=== PATIENT | female | born 1985 | race Caucasian/White ===

== ENCOUNTER 2017-11-24 16:00 | Inpatient (IN) | payer OTHER ==
[2017-11-24] MEDS ORDERED: Sodium Chloride 0.9% 10 ML Syringe FLUSH PRN (18:41)
[2017-11-24] MEDS ORDERED: Misoprostol 100 MCG Tab VAG PRN (18:41)
[2017-11-24] MEDS ORDERED: Ondansetron 4 MG/2 ML SDV IVPUSH PRN (18:41)
[2017-11-24] MEDS ORDERED: Zolpidem 5 MG Tab PO PRN (18:41)
[2017-11-24] MEDS ORDERED: Nalbuphine 20 MG/1 ML Amp IVPUSH PRN (18:41)
[2017-11-24] MEDS ORDERED: Oxytocin/Lactated Ringers 10 UNIT/1,000 ML BAG IV SCH ×2 (18:45)
--- NOTE | 2017-11-24 19:00 | PCM.LDHP ---
L&D History of Present Illness - General Date of Service: 11/24/17 Admit Problem/Dx: Patient Status Order with Admit Dx/Problem 11/24/17 18:42 Patient Status [ADT] Routine Admission Diagnosis/Problem Admission Diagnosis/Problem Gestational hypertension Source of Information: Patient History Limitations: Reports: No Limitations - History of Present Illness Introduction:: Patient is a 32 y/o at 39 4/7 wks. Presents today for IOL for gestational HTN. Doing well overall. No headaches, vision changes, RUQ pain. No other concerns. - Related Data Allergies/Adverse Reactions: Allergies Allergy/AdvReac Type Severity Reaction Status Date / Time No Known Allergies Allergy Verified 11/22/17 11:39 Past Medical History [employer] History: Reports: : 1 Para: 0 LMP (Approximate): - Past Surgical History HEENT Surgical History: Reports: Oral Surgery Social & Family History - Family History Family Medical History: Noncontributory - Tobacco Use Smoking Status *Q: Never Smoker - Alcohol Use Alcohol Use History: No - Recreational Drug Use Recreational Drug Use: No H&P Review of Systems - Review of Systems: Review Of Systems: See Below General: Reports: No Symptoms Pulmonary: Reports: No Symptoms Cardiovascular: Reports: No Symptoms Gastrointestinal: Reports: No Symptoms Genitourinary: Reports: No Symptoms Musculoskeletal: Reports: No Symptoms Psychiatric: Reports: No Symptoms Neurological: Reports: No Symptoms L&D Exam - Exam Exam: See Below - OB Specific Contraction Intensity: Irritability Movement: Active Heart Tones: Present Heart Tones per Min: 130 Heart Rate (FHR) Variability: Moderate (6-25 bmp) Presentation: Vertex - Fitzgerald Score Fitzgerald Score Cervix Position: Posterior Fitzgerald Score Consistency: Soft Fitzgerald Score Effacement: 51-70% Fitzgerald Score Dilation: 1-2 cm Fitzgerald Score 's Station: -2 Fitzgerald Score Total: 6 - Exam General: Alert, Oriented, Cooperative Lungs: Clear to Auscultation, Normal Respiratory Effort Cardiovascular: Regular Rate, Regular Rhythm GI/Abdominal Exam: Soft, Non-Tender Genitourinary: Normal external exam Back Exam: Normal Inspection Extremities: Pedal Edema Skin: Warm, Dry, Intact Neurological: Reflexes Equal Bilateral - Problem List (1) 39 weeks gestation of SNOMED Code(s): 94103264 ICD Code: Z3A.39 - 39 WEEKS GESTATION OF Status: Acute Current Visit: Yes Problem List Initiated/Reviewed/Updated: Yes Orders Last 24hrs: Active Orders 24 hr Category Date Time Status Patient Status [ADT] Routine ADT 11/24/17 18:42 Ordered Communication Order [RC] ASDIRECTED Care 11/24/17 18:42 Ordered Communication Order [RC] ASDIRECTED Care 11/24/17 18:42 Ordered Communication Order [RC] ASDIRECTED Care 11/24/17 18:42 Ordered Heart Tones [RC] ASDIRECTED Care 11/24/17 18:44 Ordered Monitoring [RC] INTERMITTENT Care 11/24/17 18:42 Ordered Notify Provider [RC] ASDIRECTED Care 11/24/17 18:42 Ordered Peripheral IV Care [RC] . DIRECTED Care 11/24/17 18:44 Ordered Pump Management, Intrathecal [RC] ASDIRECTED Care 11/24/17 18:41 Ordered Up ad Rowena [RC] ASDIRECTED Care 11/24/17 18:44 Ordered Vaginal Exam [RC] ASDIRECTED Care 11/24/17 18:42 Ordered Vital Signs [RC] ASDIRECTED Care 11/24/17 18:42 Ordered Regular Diet [DIET] Diet 11/24/17 Dinner Ordered ALANINE AMINOTRANSFERASE,ALT [CHEM] Routine Lab 11/24/17 18:41 Ordered ASPARTATE AMNIOTRANSFERASE,AST [CHEM] Routine Lab 11/24/17 18:41 Ordered CBC W/O DIFF,HEMOGRAM [HEME] Stat Lab 11/24/17 18:41 Ordered CREATININE W/GFR [CHEM] Stat Lab 11/24/17 18:41 Ordered TYPE AND SCREEN [BBK] Stat Lab 11/24/17 18:41 Ordered UA W/O MICROSCOPIC [URIN] Routine Lab 11/24/17 18:41 Ordered Lactated Ringers [Ringers, Lactated] 1,000 ml Med 11/24/17 18:45 Ordered IV ASDIRECTED Misoprostol [Cytotec] Med 11/24/17 18:41 Ordered 25 mcg VAG Q4H PRN Nalbuphine [Nubain] Med 11/24/17 18:41 Ordered 10 mg IVPUSH Q2H PRN Ondansetron [Zofran] Med 11/24/17 18:41 Ordered 4 mg IVPUSH Q4H PRN Oxytocin/Lactated Ringers [Pitocin in LR 10 Units/1,000 Med 11/24/17 18:45 Ordered ML] 10 unit in 1,000 ml IV .CONTINUOUS Oxytocin/Lactated Ringers [Pitocin in LR 10 Units/1,000 Med 11/24/17 18:45 Ordered ML] 10 unit in 1,000 ml IV TITRATE Sodium Chloride 0.9% [Saline Flush] Med 11/24/17 18:41 Ordered 10 ml FLUSH ASDIRECTED PRN Zolpidem [Ambien] Med 11/24/17 18:41 Ordered 5 mg PO BEDTIME PRN Electronic Heart Tones Ext w TOCO [WOMSER] Oth 11/24/17 18:42 Ordered Routine Peripheral IV Insertion Adult [OM.PC] Routine Ot 11/24/17 18:42 Ordered Medication Orders Lactated Ringer's (Ringers, Lactated) 1,000 mls @ 40 mls/hr IV ASDIRECTED TEN Oxytocin/Lactated Ringer's (Pitocin In Lr 10 Units/1,000 Ml) 10 unit in 1,000 mls @ 12 mls/hr IV TITRATE TEN; Protocol Oxytocin/Lactated Ringer's (Pitocin In Lr 10 Units/1,000 Ml) 10 unit in 1,000 mls @ 500 mls/hr IV .CONTINUOUS TEN Misoprostol (Cytotec) 25 mcg VAG Q4H PRN PRN Reason: cervical ripening Nalbuphine HCl (Nubain) 10 mg IVPUSH Q2H PRN PRN Reason: Pain (moderate 4-6) Ondansetron HCl (Zofran) 4 mg IVPUSH Q4H PRN PRN Reason: Nausea/Vomiting Sodium Chloride (Saline Flush) 10 ml FLUSH ASDIRECTED PRN PRN Reason: Keep Vein Open Zolpidem Tartrate (Ambien) 5 mg PO BEDTIME PRN PRN Reason: Insomnia Assessment/Plan Comment:: 32 y/o at 39 4/7 wks presents for IOL for gestational HTN * CBC, AST, ALT, Creatinine, UA * GBS negative, no need for antibiotics * Cytotec and snow bulb placed. Pitocin/AROM when needed * Monitor BP's closely * Pain management per patient preference * Anticipate
[2017-11-24] MEDS: Misoprostol 25 MCG (1/4 of 100 MCG) Tab ONE ×2 (19:22→22:35)
[2017-11-24] MEDS ORDERED: Misoprostol 25 MCG (1/4 of 100 MCG) Tab ONE (22:07)
[2017-11-25] MEDS ORDERED: Misoprostol 25 MCG (1/4 of 100 MCG) Tab VAG PRN (01:47)
[2017-11-25] MEDS ORDERED: Nalbuphine 20 MG/ML 1 ML Syringe IVPUSH PRN (04:00)
[2017-11-25] MEDS: Lactated Ringers 1,000 ML IV SCH ×3 (04:53→07:16)
[2017-11-25] MEDS ORDERED: fentaNYL 100 MCG/2 ML SDV EPIDUR PRN (05:14)
[2017-11-25] MEDS ORDERED: diphenhydrAMINE 50 MG/ML SDV IVPUSH PRN (05:14)
[2017-11-25] MEDS ORDERED: ePHEDrine 50 MG/ML SDV IVPUSH PRN (05:14)
[2017-11-25] MEDS: Bupivacaine/fentaNYL/NS 100 ML Bag EPIDUR SCH ×2 (05:55→12:31)
--- NOTE | 2017-11-25 06:09 | PCM.PREANE ---
Preanesthetic Assessment - Procedure Proposed Procedure: [facility] - Anesthesia/Transfusion/Family Hx Anesthesia History: Prior Anesthesia Without Reaction Family History of Anesthesia Reaction: No Transfusion History: No Prior Transfusion(s) Additional History: Scoliosis - Review of Systems General: No Symptoms Pulmonary: No Symptoms Cardiovascular: No Symptoms Gastrointestinal: Other (GERD with ) Neurological: No Symptoms Other: Reports: None - Physical Assessment NPO Status Date: 11/24/17 NPO Status Time: 23:00 Pulse: 86 Respiratory Rate: 18 Blood Pressure: 130/90 Vital Signs: Last Vital Signs Temp 37.1 C 11/24/17 18:42 Pulse 86 11/24/17 19:00 Resp 18 11/24/17 18:42 BP 130/90 11/24/17 19:00 Pulse Ox Height: 1.65 m Weight: 97.522 kg ASA Class: 2 Mental Status: Alert & Oriented x3 Airway Class: Mallampati = 1 Dentition: Reports: Normal Dentition Thyro-Mental Finger Breadths: 3 Mouth Opening Finger Breadths: 3 ROM/Head Extension: Full Lungs: Clear to Auscultation, Normal Respiratory Effort Cardiovascular: Regular Rate, Regular Rhythm - Lab Values: Laboratory Last Values WBC 10.39 K/mm3 (3.98-10.04) H 11/24/17 19:02 RBC 3.84 M/mm3 (3.98-5.22) L 11/24/17 19:02 Hgb 11.1 gm/L (11.2-15.7) L 11/24/17 19:02 Hct 33.5 % (34.1-44.9) L 11/24/17 19:02 MCV 87.2 fl (79.4-94.8) 11/24/17 19:02 MCH 28.9 pg (25.6-32.2) 11/24/17 19:02 MCHC 33.1 g/dl (32.2-35.5) 11/24/17 19:02 RDW Std Deviation 42.4 fL (36.4-46.3) 11/24/17 19:02 Plt Count 366 K/mm3 (182-369) 11/24/17 19:02 MPV 9.3 fl (9.4-12.3) L 11/24/17 19:02 Creatinine 1.0 mg/dL (0.55-1.02) 11/24/17 19:02 Est Cr Clr Drug Dosing 74.02 mL/min 11/24/17 19:02 Estimated GFR (MDRD) > 60 mL/min (>60) 11/24/17 19:02 AST 33 U/L (15-37) 11/24/17 19:02 ALT 34 U/L (14-59) 11/24/17 19:02 Urine Color Yellow (Yellow) 11/24/17 18:41 Urine Appearance Cloudy (Clear) H 11/24/17 18:41 Urine pH 7.0 (5.0-8.0) 11/24/17 18:41 Ur Specific [place] 1.020 (1.005-1.030) 11/24/17 18:41 Urine Protein Negative (Negative) 11/24/17 18:41 Urine Glucose (UA) Negative (Negative) 11/24/17 18:41 Urine Ketones Negative (Negative) 11/24/17 18:41 Urine Occult Blood 1+ (Negative) H 11/24/17 18:41 Urine Nitrite Negative (Negative) 11/24/17 18:41 Urine Bilirubin Negative (Negative) 11/24/17 18:41 Urine Urobilinogen 0.2 (0.2-1.0) 11/24/17 18:41 Ur Leukocyte Esterase 2+ (Negative) H 11/24/17 18:41 Blood Type O POSITIVE 11/24/17 19:02 Gel Antibody Screen Negative 11/24/17 19:02 - Allergies Allergies/Adverse Reactions: Allergies Allergy/AdvReac Type Severity Reaction Status Date / Time No Known Allergies Allergy Verified 11/22/17 11:39 - Blood Blood Available: No Product(s) Available: None - Anesthesia Plan Pre-Op Medication Ordered: None - Acknowledgements Anesthesia Type Planned: Epidural Pt an Appropriate Candidate for the Planned Anesthesia: Yes Alternatives and Risks of Anesthesia Discussed w Pt/Guardian: Yes Pt/Guardian Understands and Agrees with Anesthesia Plan: Yes PreAnesthesia Questionnaire 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: - Past Surgical History HEENT Surgical History: Reports: Oral Surgery - SUBSTANCE USE Smoking Status *Q: Never Smoker Second Hand Smoke Exposure: No Recreational Drug Use History: No - HOME MEDS Home Medications: Home Meds [id number]/Iron Fumarate/FA/DSS [ 19 Tablet] 1 tab PO DAILY 11/24/17 [ History] - CURRENT (IN HOUSE) MEDS Current Meds: Current Medications Diphenhydramine HCl (Benadryl) 25 mg IVPUSH Q6H PRN PRN Reason: Pruritis Ephedrine Sulfate (Ephedrine Sulfate) 5 mg IVPUSH ASDIRECTED PRN PRN Reason: Hypotension Fentanyl (Sublimaze) 100 mcg EPIDUR Q3H PRN PRN Reason: Pain Last Admin: 11/25/17 05:54 Dose: 100 mcg Fentanyl/Bupivacaine HCl (Fentanyl/Bupivacaine/Ns 2 Mcg-0.125% 100 Ml) 100 ml EPIDUR ASDIRECTED TEN Last Admin: 11/25/17 05:55 Dose: 100 ml Lactated Ringer's (Ringers, Lactated) 1,000 mls @ 40 mls/hr IV ASDIRECTED TEN Last Admin: 11/25/17 04:53 Dose: 40 mls/hr Oxytocin/Lactated Ringer's (Pitocin In Lr 10 Units/1,000 Ml) 10 unit in 1,000 mls @ 12 mls/hr IV TITRATE TEN; Protocol Oxytocin/Lactated Ringer's (Pitocin In Lr 10 Units/1,000 Ml) 10 unit in 1,000 mls @ 500 mls/hr IV .CONTINUOUS TEN Misoprostol (Cytotec) 25 mcg VAG Q4H PRN PRN Reason: cervical ripening Nalbuphine HCl (Nubain) 10 mg IVPUSH Q2H PRN PRN Reason: Pain (moderate 4-6) Last Admin: 11/25/17 04:27 Dose: 10 mg Ondansetron HCl (Zofran) 4 mg IVPUSH Q4H PRN PRN Reason: Nausea/Vomiting Sodium Chloride (Saline Flush) 10 ml FLUSH ASDIRECTED PRN PRN Reason: Keep Vein Open Zolpidem Tartrate (Ambien) 5 mg PO BEDTIME PRN PRN Reason: Insomnia Discontinued Medications Misoprostol (Cytotec) Confirm Administered Dose 25 mcg .ROUTE .STK-MED ONE Stop: 11/24/17 18:21 Last Admin: 11/24/17 22:35 Dose: 25 mcg Misoprostol (Cytotec) 25 mcg VAG Q4H PRN PRN Reason: cervical ripening Misoprostol (Cytotec) Confirm Administered Dose 25 mcg .ROUTE .STK-MED ONE Stop: 11/24/17 22:08 Last Admin: 11/25/17 01:48 Dose: Not Given Nalbuphine HCl (Nubain) 10 mg IVPUSH Q2H PRN PRN Reason: Pain (moderate 4-6)
--- NOTE | 2017-11-25 06:52 | PCM.PNLD ---
Labor Progress Note - VS & Meds Vital Signs: Last Vital Signs Temp 37.1 C 11/24/17 18:42 Pulse 86 11/25/17 06:09 Resp 18 11/25/17 06:09 BP 130/90 11/25/17 06:09 Pulse Ox Active Medications: Current Medications Diphenhydramine HCl (Benadryl) 25 mg IVPUSH Q6H PRN PRN Reason: Pruritis Ephedrine Sulfate (Ephedrine Sulfate) 5 mg IVPUSH ASDIRECTED PRN PRN Reason: Hypotension Fentanyl (Sublimaze) 100 mcg EPIDUR Q3H PRN PRN Reason: Pain Last Admin: 11/25/17 05:54 Dose: 100 mcg Fentanyl/Bupivacaine HCl (Fentanyl/Bupivacaine/Ns 2 Mcg-0.125% 100 Ml) 100 ml EPIDUR ASDIRECTED TEN Last Admin: 11/25/17 05:55 Dose: 100 ml Lactated Ringer's (Ringers, Lactated) 1,000 mls @ 40 mls/hr IV ASDIRECTED TEN Last Admin: 11/25/17 06:07 Dose: 40 mls/hr Oxytocin/Lactated Ringer's (Pitocin In Lr 10 Units/1,000 Ml) 10 unit in 1,000 mls @ 12 mls/hr IV TITRATE TEN; Protocol Oxytocin/Lactated Ringer's (Pitocin In Lr 10 Units/1,000 Ml) 10 unit in 1,000 mls @ 500 mls/hr IV .CONTINUOUS TEN Misoprostol (Cytotec) 25 mcg VAG Q4H PRN PRN Reason: cervical ripening Nalbuphine HCl (Nubain) 10 mg IVPUSH Q2H PRN PRN Reason: Pain (moderate 4-6) Last Admin: 11/25/17 04:27 Dose: 10 mg Ondansetron HCl (Zofran) 4 mg IVPUSH Q4H PRN PRN Reason: Nausea/Vomiting Sodium Chloride (Saline Flush) 10 ml FLUSH ASDIRECTED PRN PRN Reason: Keep Vein Open Zolpidem Tartrate (Ambien) 5 mg PO BEDTIME PRN PRN Reason: Insomnia Discontinued Medications Misoprostol (Cytotec) Confirm Administered Dose 25 mcg .ROUTE .ST-MED ONE Stop: 11/24/17 18:21 Last Admin: 06/23/18 22:35 Dose: 25 mcg Misoprostol (Cytotec) 25 mcg VAG Q4H PRN PRN Reason: cervical ripening Misoprostol (Cytotec) Confirm Administered Dose 25 mcg .ROUTE .STK-MED ONE Stop: 11/24/17 22:08 Last Admin: 11/25/17 01:48 Dose: Not Given Nalbuphine HCl (Nubain) 10 mg IVPUSH Q2H PRN PRN Reason: Pain (moderate 4-6) - Uterine Contractions Uterine Monitoring Mode: External [place] Contraction Intensity: Moderate - Monitoring Monitor Mode: External Ultrasound Heart Rate (FHR) Baseline: 130 Heart Rate (FHR) Variability: Moderate (6-25 bmp) Accelerations: Present, 15x15 Decelerations: Variable (After epidural at about 0600 patient with deceleration down to 70's for 1 minute ) - Vaginal Exam Dilation (cm): 5 - Labor Progress (Free Text) Labor Progress: Patient doing well. Hogan bulb out around 2200. 2nd cytotec dose placed at 2230. Patient derek frequently and so further doses deferred. Patient with SROM at about 0400. Doing well and currently 5 cm / 80% / 0 per nursing.
--- NOTE | 2017-11-25 09:23 | PCM.PNLD ---
Labor Progress Note - VS & Meds Vital Signs: Last Vital Signs Temp 37.1 C 11/24/17 18:42 Pulse 86 11/25/17 06:09 Resp 18 11/25/17 06:09 BP 130/90 11/25/17 06:09 Pulse Ox Active Medications: Current Medications Diphenhydramine HCl (Benadryl) 25 mg IVPUSH Q6H PRN PRN Reason: Pruritis Ephedrine Sulfate (Ephedrine Sulfate) 5 mg IVPUSH ASDIRECTED PRN PRN Reason: Hypotension Fentanyl (Sublimaze) 100 mcg EPIDUR Q3H PRN PRN Reason: Pain Last Admin: 11/25/17 05:54 Dose: 100 mcg Fentanyl/Bupivacaine HCl (Fentanyl/Bupivacaine/Ns 2 Mcg-0.125% 100 Ml) 100 ml EPIDUR ASDIRECTED TEN Last Admin: 11/25/17 05:55 Dose: 100 ml Lactated Ringer's (Ringers, Lactated) 1,000 mls @ 40 mls/hr IV ASDIRECTED TEN Last Admin: 11/25/17 07:16 Dose: 500 mls/hr Oxytocin/Lactated Ringer's (Pitocin In Lr 10 Units/1,000 Ml) 10 unit in 1,000 mls @ 12 mls/hr IV TITRATE TEN; Protocol Oxytocin/Lactated Ringer's (Pitocin In Lr 10 Units/1,000 Ml) 10 unit in 1,000 mls @ 500 mls/hr IV .CONTINUOUS TEN Misoprostol (Cytotec) 25 mcg VAG Q4H PRN PRN Reason: cervical ripening Nalbuphine HCl (Nubain) 10 mg IVPUSH Q2H PRN PRN Reason: Pain (moderate 4-6) Last Admin: 11/25/17 04:27 Dose: 10 mg Ondansetron HCl (Zofran) 4 mg IVPUSH Q4H PRN PRN Reason: Nausea/Vomiting Sodium Chloride (Saline Flush) 10 ml FLUSH ASDIRECTED PRN PRN Reason: Keep Vein Open Zolpidem Tartrate (Ambien) 5 mg PO BEDTIME PRN PRN Reason: Insomnia Discontinued Medications Misoprostol (Cytotec) Confirm Administered Dose 25 mcg .ROUTE .ST-MED ONE Stop: 11/24/17 18:21 Last Admin: 06/23/18 22:35 Dose: 25 mcg Misoprostol (Cytotec) 25 mcg VAG Q4H PRN PRN Reason: cervical ripening Misoprostol (Cytotec) Confirm Administered Dose 25 mcg .ROUTE .STK-MED ONE Stop: 11/24/17 22:08 Last Admin: 11/25/17 01:48 Dose: Not Given Nalbuphine HCl (Nubain) 10 mg IVPUSH Q2H PRN PRN Reason: Pain (moderate 4-6) - Uterine Contractions Uterine Monitoring Mode: External [place] Contraction Intensity: Moderate - Monitoring Monitor Mode: External Ultrasound Heart Rate (FHR) Baseline: 130 Heart Rate (FHR) Variability: Moderate (6-25 bmp) Accelerations: Present, 15x15 Decelerations: None Strip Review: Category I - Vaginal Exam Dilation (cm): 5 Effacement (Percent): 75 Station: -1 Cervical Position: Midposition - Labor Progress (Free Text) Labor Progress: Doing well. Comfortable with epidural. Similar exam to nursing last check around 0500. Will start pitocin for augmentation. patient and agree.
--- NOTE | 2017-11-25 16:50 | PCM.DEL ---
L & D Note - General Info Date of Service: 11/25/17 - Delivery Note Labor: Induced by Oxytocin Cervical Ripening Method: Balloon Device, Misoprostil Delivery Outcome: Livebirth Infant Delivery Method: Spontaneous Vaginal Delivery-Single Infant Delivery Mode: Spontaneous Presentation: Right Occiput Anterior (TIFFANIE) Nuchal Cord: None Anesthesia Type: Epidural Amniotic Fluid Description: Clear Episiotomy Type: None Laceration: 1st Degree Suture type: Vicryl Suture size: 3-0 Placenta: Intact, Spontaneous Cord: 3 Vessels Estimated Blood Loss: 350 Resuscitation Needed: Yes [place]: Bulb Syringe, Stimulated, Warmed, [place] Used Score 1 min: 8 Score 5 min: 9 Delivery Comments (Free Text/Narrative):: Patient found to be complete and began pushing. With maternal pushing effort head delivered from an TIFFANIE presentation. No nuchal cord present. With gentle downward traction the shoulders and body delivered. Infant placed on maternal abdomen. Cord clamped and cut. Cord blood obtained. Placenta allowed time to separate and expelled intact. Inspection of the perineum showed a 1st degree laceration. This was repaired with a 3-0 vicryl in the typical fashion. - General Info Date of Service: 11/25/17 - Patient Data Vitals - Most Recent: Last Vital Signs Temp 37.1 C 11/24/17 18:42 Pulse 86 11/25/17 06:09 Resp 18 11/25/17 06:09 BP 130/90 11/25/17 06:09 Pulse Ox Weight - Most Recent: 97.522 kg Lab Results Last 24 Hours: Laboratory Results - last 24 hr 11/24/17 11/24/17 11/24/17 Range/Units 18:41 19:02 19:02 WBC 10.39 H (3.98-10.04) K/mm3 RBC 3.84 L (3.98-5.22) M/mm3 Hgb 11.1 L (11.2-15.7) gm/L Hct 33.5 L (34.1-44.9) % MCV 87.2 (79.4-94.8) fl MCH 28.9 (25.6-32.2) pg MCHC 33.1 (32.2-35.5) g/dl RDW Std Deviation 42.4 (36.4-46.3) fL Plt Count 366 (182-369) K/mm3 MPV 9.3 L (9.4-12.3) fl Creatinine (0.55-1.02) mg/dL Est Cr Clr Drug Dosing mL/min Estimated GFR (MDRD) (>60) mL/min AST 33 (15-37) U/L ALT 34 (14-59) U/L Urine Color Yellow (Yellow) Urine Appearance Cloudy H (Clear) Urine pH 7.0 (5.0-8.0) Ur Specific [place] 1.020 (1.005-1.030) Urine Protein Negative (Negative) Urine Glucose (UA) Negative (Negative) Urine Ketones Negative (Negative) Urine Occult Blood 1+ H (Negative) Urine Nitrite Negative (Negative) Urine Bilirubin Negative (Negative) Urine Urobilinogen 0.2 (0.2-1.0) Ur Leukocyte Esterase 2+ H (Negative) Blood Type Gel Antibody Screen 11/24/17 11/24/17 Range/Units 19:02 19:02 WBC (3.98-10.04) K/mm3 RBC (3.98-5.22) M/mm3 Hgb (11.2-15.7) gm/L Hct (34.1-44.9) % MCV (79.4-94.8) fl MCH (25.6-32.2) pg MCHC (32.2-35.5) g/dl RDW Std Deviation (36.4-46.3) fL Plt Count (182-369) K/mm3 MPV (9.4-12.3) fl Creatinine 1.0 (0.55-1.02) mg/dL Est Cr Clr Drug Dosing 74.02 mL/min Estimated GFR (MDRD) > 60 (>60) mL/min AST (15-37) U/L ALT (14-59) U/L Urine Color (Yellow) Urine Appearance (Clear) Urine pH (5.0-8.0) Ur Specific [place] (1.005-1.030) Urine Protein (Negative) Urine Glucose (UA) (Negative) Urine Ketones (Negative) Urine Occult Blood (Negative) Urine Nitrite (Negative) Urine Bilirubin (Negative) Urine Urobilinogen (0.2-1.0) Ur Leukocyte Esterase (Negative) Blood Type O POSITIVE Gel Antibody Screen Negative Med Orders - Current: Current Medications Diphenhydramine HCl (Benadryl) 25 mg IVPUSH Q6H PRN PRN Reason: Pruritis Ephedrine Sulfate (Ephedrine Sulfate) 5 mg IVPUSH ASDIRECTED PRN PRN Reason: Hypotension Fentanyl (Sublimaze) 100 mcg EPIDUR Q3H PRN PRN Reason: Pain Last Admin: 11/25/17 05:54 Dose: 100 mcg Fentanyl/Bupivacaine HCl (Fentanyl/Bupivacaine/Ns 2 Mcg-0.125% 100 Ml) 100 ml EPIDUR ASDIRECTED TEN Last Admin: 11/25/17 12:31 Dose: 100 ml Lactated Ringer's (Ringers, Lactated) 1,000 mls @ 40 mls/hr IV ASDIRECTED TEN Last Admin: 11/25/17 07:16 Dose: 500 mls/hr Oxytocin/Lactated Ringer's (Pitocin In Lr 10 Units/1,000 Ml) 10 unit in 1,000 mls @ 12 mls/hr IV TITRATE TEN; Protocol Last Titration: 11/25/17 12:11 Dose: 10 munits/min, 60 mls/hr Oxytocin/Lactated Ringer's (Pitocin In Lr 10 Units/1,000 Ml) 10 unit in 1,000 mls @ 500 mls/hr IV .CONTINUOUS TEN Misoprostol (Cytotec) 25 mcg VAG Q4H PRN PRN Reason: cervical ripening Nalbuphine HCl (Nubain) 10 mg IVPUSH Q2H PRN PRN Reason: Pain (moderate 4-6) Last Admin: 11/25/17 04:27 Dose: 10 mg Ondansetron HCl (Zofran) 4 mg IVPUSH Q4H PRN PRN Reason: Nausea/Vomiting Sodium Chloride (Saline Flush) 10 ml FLUSH ASDIRECTED PRN PRN Reason: Keep Vein Open Zolpidem Tartrate (Ambien) 5 mg PO BEDTIME PRN PRN Reason: Insomnia Discontinued Medications Misoprostol (Cytotec) Confirm Administered Dose 25 mcg .ROUTE .STK-MED ONE Stop: 11/24/17 18:21 Last Admin: 11/24/17 22:35 Dose: 25 mcg Misoprostol (Cytotec) 25 mcg VAG Q4H PRN PRN Reason: cervical ripening Misoprostol (Cytotec) Confirm Administered Dose 25 mcg .ROUTE .STK-MED ONE Stop: 11/24/17 22:08 Last Admin: 11/25/17 01:48 Dose: Not Given Nalbuphine HCl (Nubain) 10 mg IVPUSH Q2H PRN PRN Reason: Pain (moderate 4-6) - Problem List & Annotations (1) 39 weeks gestation of SNOMED Code(s): 14086766 Code(s): Z3A.39 - 39 WEEKS GESTATION OF Status: Acute Current Visit: Yes (2) Gestational hypertension SNOMED Code(s): 63889392 Code(s): O13.9 - GESTATIONAL HTN W/O SIGNIFICANT PROTEINURIA, UNSP TRIMESTER Status: Acute Current Visit: Yes Qualifiers: Trimester: third trimester Qualified Code(s): O13.3 - Gestational [ -induced] hypertension without significant proteinuria, third trimester (3) Vaginal delivery SNOMED Code(s): 757933577 Code(s): O80 - ENCOUNTER FOR FULL-TERM UNCOMPLICATED DELIVERY Status: Acute Current Visit: Yes - Problem List Review Problem List Initiated/Reviewed/Updated: Yes - My Orders Last 24 Hours: My Active Orders 11/24/17 18:41 Pump Management, Intrathecal [RC] ASDIRECTED UA W/O MICROSCOPIC [URIN] Routine Ondansetron [Zofran] 4 mg IVPUSH Q4H PRN Sodium Chloride 0.9% [Saline Flush] 10 ml FLUSH ASDIRECTED PRN Zolpidem [Ambien] 5 mg PO BEDTIME PRN 11/24/17 18:42 Patient Status [ADT] Routine Communication Order [RC] ASDIRECTED Communication Order [RC] ASDIRECTED Communication Order [RC] ASDIRECTED Monitoring [RC] INTERMITTENT Notify Provider [RC] ASDIRECTED Vital Signs [RC] ASDIRECTED Electronic Heart Tones Ext w TOCO [WOMSER] Routine Peripheral IV Insertion Adult [OM.PC] Routine 11/24/17 18:44 Peripheral IV Care [RC] . DIRECTED Up ad [place] [RC] ASDIRECTED 11/24/17 18:45 Lactated Ringers [Ringers, Lactated] 1,000 ml IV ASDIRECTED Oxytocin/Lactated Ringers [Pitocin in LR 10 Units/1,000 ML] 10 unit in 1,000 ml IV .CONTINUOUS Oxytocin/Lactated Ringers [Pitocin in LR 10 Units/1,000 ML] 10 unit in 1,000 ml IV TITRATE 11/24/17 19:02 RAPID PLASMA REAGIN,RPR [CHEM] Routine 11/24/17 Dinner Regular Diet [DIET] 11/25/17 01:47 Misoprostol [Cytotec] 25 mcg VAG Q4H PRN 11/25/17 04:00 Nalbuphine [Nubain] 10 mg IVPUSH Q2H PRN - Assessment Assessment:: 32 y/o G1 now P1001 PPD#0 from at 39 5/7 wks - Plan Plan:: * Routine cares * Encourage breast feeding * Discharge home in 1-2 days
[2017-11-25] MEDS ORDERED: Lanolin 100% Cream 7 GM Tube TOP PRN (17:37)
[2017-11-25] MEDS ORDERED: Witch Hazel Medicated Pads 100/Jar TOP PRN (17:37)
[2017-11-25] MEDS ORDERED: Benzocaine/Menthol 20%-0.5% Spray 56 GM Canister TOP PRN (17:37)
[2017-11-25] MEDS ORDERED: Acetaminophen 325 MG Tab PO PRN (17:37)
[2017-11-25] MEDS ORDERED: Docusate Sodium 100 MG Cap PO PRN (17:37)
[2017-11-25] MEDS: Ibuprofen 600 MG Tab PO PRN (20:38)
[2017-11-25] MEDS ORDERED: Bupivacaine 0.25% 10 ML SDV ONE (22:00)
[2017-11-26] MEDS: Ibuprofen 600 MG Tab PO PRN ×4 (03:02→21:02)
--- NOTE | 2017-11-26 07:16 | PCM.PNPP ---
- General Info Date of Service: 11/26/17 Functional Status: Reports: Pain Controlled, Tolerating Diet, Ambulating, Urinating - Review of Systems General: Reports: No Symptoms Pulmonary: Reports: No Symptoms Cardiovascular: Reports: No Symptoms Gastrointestinal: Reports: No Symptoms Genitourinary: Reports: No Symptoms Musculoskeletal: Reports: No Symptoms - Patient Data Vital Signs - Most Recent: Last Vital Signs Temp 36.7 C 11/26/17 03:00 Pulse 99 11/26/17 03:00 Resp 17 11/26/17 03:00 BP 114/70 11/26/17 03:00 Pulse Ox 98 11/26/17 03:00 Weight - Most Recent: 97.522 kg I&O - Last 24 Hours: Intake & Output 11/25/17 11/26/17 11/26/17 22:59 06:59 14:59 Intake Total 4000 Balance 4000 Med Orders - Current: Current Medications Acetaminophen (Tylenol) 650 mg PO Q4H PRN PRN Reason: mild pain or fever Benzocaine/Menthol (Dermoplast Pain Relief [place]) 0 gm TOP ASDIRECTED PRN PRN Reason: Perineal Comfort Measure Last Admin: 11/25/17 17:44 Dose: 1 can Docusate Sodium (Colace) 100 mg PO BID PRN PRN Reason: Constipation Emollient Ointment (Lansinoh Hpa) 0 gm TOP ASDIRECTED PRN PRN Reason: Sore Nipples Ibuprofen (Motrin) 600 mg PO Q6H PRN PRN Reason: Mild pain or fever Last Admin: 11/26/17 03:02 Dose: 600 mg Witch Karuna (Tucks) 1 pad TOP ASDIRECTED PRN PRN Reason: Hemorrhoid pain Last Admin: 11/25/17 17:44 Dose: 1 jar Discontinued Medications Diphenhydramine HCl (Benadryl) 25 mg IVPUSH Q6H PRN PRN Reason: Pruritis Ephedrine Sulfate (Ephedrine Sulfate) 5 mg IVPUSH ASDIRECTED PRN PRN Reason: Hypotension Fentanyl (Sublimaze) 100 mcg EPIDUR Q3H PRN PRN Reason: Pain Last Admin: 11/25/17 05:54 Dose: 100 mcg Fentanyl/Bupivacaine HCl (Fentanyl/Bupivacaine/Ns 2 Mcg-0.125% 100 Ml) 100 ml EPIDUR ASDIRECTED TEN Last Admin: 11/25/17 12:31 Dose: 100 ml Lactated Ringer's (Ringers, Lactated) 1,000 mls @ 40 mls/hr IV ASDIRECTED TEN Last Admin: 11/25/17 07:16 Dose: 500 mls/hr Oxytocin/Lactated Ringer's (Pitocin In Lr 10 Units/1,000 Ml) 10 unit in 1,000 mls @ 12 mls/hr IV TITRATE TEN; Protocol Last Titration: 11/25/17 12:11 Dose: 10 munits/min, 60 mls/hr Oxytocin/Lactated Ringer's (Pitocin In Lr 10 Units/1,000 Ml) 10 unit in 1,000 mls @ 500 mls/hr IV .CONTINUOUS TEN Misoprostol (Cytotec) Confirm Administered Dose 25 mcg .ROUTE .STK-MED ONE Stop: 11/24/17 18:21 Last Admin: 11/24/17 22:35 Dose: 25 mcg Misoprostol (Cytotec) 25 mcg VAG Q4H PRN PRN Reason: cervical ripening Misoprostol (Cytotec) Confirm Administered Dose 25 mcg .ROUTE .STK-MED ONE Stop: 11/24/17 22:08 Last Admin: 11/25/17 01:48 Dose: Not Given Misoprostol (Cytotec) 25 mcg VAG Q4H PRN PRN Reason: cervical ripening Nalbuphine HCl (Nubain) 10 mg IVPUSH Q2H PRN PRN Reason: Pain (moderate 4-6) Nalbuphine HCl (Nubain) 10 mg IVPUSH Q2H PRN PRN Reason: Pain (moderate 4-6) Last Admin: 11/25/17 04:27 Dose: 10 mg Ondansetron HCl (Zofran) 4 mg IVPUSH Q4H PRN PRN Reason: Nausea/Vomiting Sodium Chloride (Saline Flush) 10 ml FLUSH ASDIRECTED PRN PRN Reason: Keep Vein Open Zolpidem Tartrate (Ambien) 5 mg PO BEDTIME PRN PRN Reason: Insomnia - Interaction Disposition, : [place] in Room with Family Interaction: Holding Feeding: Breastfed ; Nursed Well Support Person: - Recovery Exam Fundal Tone: Firm Fundal Level: 2 Fingerbreadths Below Umbilicus Fundal Placement: Midline Lochia Amount: Small Lochia Color: Rubra/Red Perineum Description: Other (see below) Other Perinuem Description: 1st degree with repair Episiotomy/Laceration: Approximated Bladder Status: Voiding - Exam General: Alert, Oriented, Cooperative GI/Abdominal Exam: Soft, Non-Tender Extremities: Normal Inspection Skin: Warm, Dry, Intact - Problem List & Annotations (1) 39 weeks gestation of SNOMED Code(s): 69112293 Code(s): Z3A.39 - 39 WEEKS GESTATION OF Status: Acute Current Visit: Yes (2) Gestational hypertension SNOMED Code(s): 16798068 Code(s): O13.9 - GESTATIONAL HTN W/O SIGNIFICANT PROTEINURIA, UNSP TRIMESTER Status: Acute Current Visit: Yes Qualifiers: Trimester: third trimester Qualified Code(s): O13.3 - Gestational [ -induced] hypertension without significant proteinuria, third trimester (3) Vaginal delivery SNOMED Code(s): 114200434 Code(s): O80 - ENCOUNTER FOR FULL-TERM UNCOMPLICATED DELIVERY Status: Acute Current Visit: Yes - Problem List Review Problem List Initiated/Reviewed/Updated: Yes - My Orders Last 24 Hours: My Active Orders 11/25/17 17:18 Resuscitation Status Routine 11/25/17 17:37 Activity as Tolerated [RC] PER UNIT ROUTINE Vital Signs [RC] 09,15,21,03 Acetaminophen [Tylenol] 650 mg PO Q4H PRN Benzocaine/Menthol [Dermoplast Pain Relief [place]] See Dose Instructions TOP ASDIRECTED PRN Docusate Sodium [Colace] 100 mg PO BID PRN Ibuprofen [Motrin] 600 mg PO Q6H PRN Lanolin [Lansinoh HPA] See Dose Instructions TOP ASDIRECTED PRN Witch Karuna [Tucks] 1 pad TOP ASDIRECTED PRN Assess Lochia [WOMSER] Per Unit Routine Assess Uterine Involution [WOMSER] Per Unit Routine Breast Pump [WOMSER] Per Unit Routine Heat Therapy [OM.PC] PRN Ice Therapy [OM.PC] Per Unit Routine Perineal Care [OM.PC] Per Unit Routine Peripheral IV Discontinue [OM.PC] Routine Sitz Bath [OM.PC] Per Unit Routine 11/25/17 Dinner Regular Diet [DIET] 11/26/17 17:37 Heat Therapy [OM.PC] PRN - Assessment Assessment:: 32 y/o G1 now P1001 PPD#1 from at 39 5/7 wks - Plan Plan:: * Routine cares * Encourage breast feeding * Discharge home tomorrow
--- NOTE | 2017-11-26 08:02 | PCM48HPAN ---
Post Anesthesia Note - EVALUATION WITHIN 48HRS OF ANESTHETIC Vital Signs in Normal Range: Yes Patient Participated in Evaluation: Yes Respiratory Function Stable: Yes Airway Patent: Yes Cardiovascular Function Stable: Yes Hydration Status Stable: Yes Pain Control Satisfactory: Yes Nausea and Vomiting Control Satisfactory: Yes Mental Status Recovered: Yes Pulse Rate: 99 Resp Rate: 17 Temperature: 98.1 F Blood Pressure: 114/70
--- NOTE | 2017-11-27 07:05 | PCM.DCSUM1 ---
Discharge Summary - Discharge Data Discharge Date: 11/27/17 Discharge Disposition: Home, Self-Care 01 Condition: Good - Discharge Diagnosis/Problem(s) (1) 39 weeks gestation of SNOMED Code(s): 35768009 ICD Code: Z3A.39 - 39 WEEKS GESTATION OF Status: Acute Current Visit: Yes (2) Gestational hypertension SNOMED Code(s): 59592385 ICD Code: O13.9 - GESTATIONAL HTN W/O SIGNIFICANT PROTEINURIA, UNSP TRIMESTER Status: Acute Current Visit: Yes Qualifiers: Trimester: third trimester Qualified Code(s): O13.3 - Gestational [ -induced] hypertension without significant proteinuria, third trimester (3) Vaginal delivery SNOMED Code(s): 529033432 ICD Code: O80 - ENCOUNTER FOR FULL-TERM UNCOMPLICATED DELIVERY Status: Acute Current Visit: Yes - Patient Summary/Data Complications: None Consults: None Recommended Follow-up Testing/Procedures: Follow up in 2 weeks for BP check Hospital Course: 32 y/o admitted at 39 4/7 wks for IOL for gestational HTN. This was done with snow bulb and Cytotec. Did have SROM. Eventually required pitocin augmentation. She did well with this and reached complete dilation. Underwent an uncomplicated . See delivery note for full details. did well with normal to mild range BP's. Discharged home on PPD#2 - Patient Instructions Diet: Regular Diet as Tolerated Activity: As Tolerated Activity, Other: Pelvic Rest for 6 weeks Driving: May Drive Today Showering/Bathing: May Shower Showering/Bathing, Other: May Bathe Notify Provider of: Fever, Increased Pain, Swelling and Redness, Drainage, Nausea and/or Vomiting - Discharge Plan Home Medications: Home Meds [id number]/Iron Fumarate/FA/DSS [ 19 Tablet] 1 tab PO DAILY 11/24/17 [ History] Docusate Sodium [Colace] 100 mg PO BID PRN cap 11/26/17 [Rx] Patient Handouts: Home Care Instructions for Mom, Breast Pumping Tips, Easy-to- Read, Tips for a Good Latch Referrals: Lizbeth Castellanos MD [Primary Care Provider] - (3 weeks for check- call to schedule appt) - Patient Data Vitals - Most Recent: Last Vital Signs Temp 36.7 C 11/27/17 03:57 Pulse 69 11/27/17 03:57 Resp 16 11/27/17 03:57 BP 117/70 11/27/17 03:57 Pulse Ox 98 11/27/17 03:57 Weight - Most Recent: 97.522 kg I&O - Last 24 hours: Intake & Output 11/26/17 11/27/17 11/27/17 22:59 06:59 14:59 Intake Total 300 Balance 300 Lab Results - Last 24 hrs: Laboratory Results - last 24 hr 11/24/17 Range/Units 19:02 RPR Non-reactive (NONREACTIVE) Med Orders - Current: Current Medications Acetaminophen (Tylenol) 650 mg PO Q4H PRN PRN Reason: mild pain or fever Benzocaine/Menthol (Dermoplast Pain Relief [place]) 0 gm TOP ASDIRECTED PRN PRN Reason: Perineal Comfort Measure Last Admin: 11/25/17 17:44 Dose: 1 can Docusate Sodium (Colace) 100 mg PO BID PRN PRN Reason: Constipation Last Admin: 11/26/17 09:33 Dose: 100 mg Emollient Ointment (Lansinoh Hpa) 0 gm TOP ASDIRECTED PRN PRN Reason: Sore Nipples Last Admin: 11/26/17 09:32 Dose: 1 applic Ibuprofen (Motrin) 600 mg PO Q6H PRN PRN Reason: Mild pain or fever Last Admin: 11/26/17 21:02 Dose: 600 mg Witch Karuna (Tucks) 1 pad TOP ASDIRECTED PRN PRN Reason: Hemorrhoid pain Last Admin: 11/25/17 17:44 Dose: 1 jar Discontinued Medications Bupivacaine HCl (Sensorcaine-Mpf 0.25%) 10 ml .ROUTE .STK-MED ONE Stop: 11/25/17 22:01 Diphenhydramine HCl (Benadryl) 25 mg IVPUSH Q6H PRN PRN Reason: Pruritis Ephedrine Sulfate (Ephedrine Sulfate) 5 mg IVPUSH ASDIRECTED PRN PRN Reason: Hypotension Fentanyl (Sublimaze) 100 mcg EPIDUR Q3H PRN PRN Reason: Pain Last Admin: 11/25/17 05:54 Dose: 100 mcg Fentanyl/Bupivacaine HCl (Fentanyl/Bupivacaine/Ns 2 Mcg-0.125% 100 Ml) 100 ml EPIDUR ASDIRECTED TEN Last Admin: 11/25/17 12:31 Dose: 100 ml Lactated Ringer's (Ringers, Lactated) 1,000 mls @ 40 mls/hr IV ASDIRECTED [facility] Last Admin: 11/25/17 07:16 Dose: 500 mls/hr Oxytocin/Lactated Ringer's (Pitocin In Lr 10 Units/1,000 Ml) 10 unit in 1,000 mls @ 12 mls/hr IV TITRATE TEN; Protocol Last Titration: 11/25/17 12:11 Dose: 10 munits/min, 60 mls/hr Oxytocin/Lactated Ringer's (Pitocin In Lr 10 Units/1,000 Ml) 10 unit in 1,000 mls @ 500 mls/hr IV .CONTINUOUS [facility] Misoprostol (Cytotec) Confirm Administered Dose 25 mcg .ROUTE .STK-MED ONE Stop: 11/24/17 18:21 Last Admin: 11/24/17 22:35 Dose: 25 mcg Misoprostol (Cytotec) 25 mcg VAG Q4H PRN PRN Reason: cervical ripening Misoprostol (Cytotec) Confirm Administered Dose 25 mcg .ROUTE .STK-MED ONE Stop: 11/24/17 22:08 Last Admin: 11/25/17 01:48 Dose: Not Given Misoprostol (Cytotec) 25 mcg VAG Q4H PRN PRN Reason: cervical ripening Nalbuphine HCl (Nubain) 10 mg IVPUSH Q2H PRN PRN Reason: Pain (moderate 4-6) Nalbuphine HCl (Nubain) 10 mg IVPUSH Q2H PRN PRN Reason: Pain (moderate 4-6) Last Admin: 11/25/17 04:27 Dose: 10 mg Ondansetron HCl (Zofran) 4 mg IVPUSH Q4H PRN PRN Reason: Nausea/Vomiting Sodium Chloride (Saline Flush) 10 ml FLUSH ASDIRECTED PRN PRN Reason: Keep Vein Open Zolpidem Tartrate (Ambien) 5 mg PO BEDTIME PRN PRN Reason: Insomnia
--- NOTE | 2017-11-27 07:05 | PCM.PNPP ---
- General Info Date of Service: 11/27/17 Functional Status: Reports: Pain Controlled, Tolerating Diet, Ambulating, Urinating - Review of Systems General: Reports: No Symptoms Cardiovascular: Reports: No Symptoms Gastrointestinal: Reports: No Symptoms Genitourinary: Reports: No Symptoms Musculoskeletal: Reports: No Symptoms Neurological: Reports: No Symptoms - Patient Data Vital Signs - Most Recent: Last Vital Signs Temp 36.7 C 11/27/17 03:57 Pulse 69 11/27/17 03:57 Resp 16 11/27/17 03:57 BP 117/70 11/27/17 03:57 Pulse Ox 98 11/27/17 03:57 Weight - Most Recent: 97.522 kg I&O - Last 24 Hours: Intake & Output 11/26/17 11/27/17 11/27/17 22:59 06:59 14:59 Intake Total 300 Balance 300 Lab Results - Last 24 Hours: Laboratory Results - last 24 hr 11/24/17 Range/Units 19:02 RPR Non-reactive (NONREACTIVE) Med Orders - Current: Current Medications Acetaminophen (Tylenol) 650 mg PO Q4H PRN PRN Reason: mild pain or fever Benzocaine/Menthol (Dermoplast Pain Relief [place]) 0 gm TOP ASDIRECTED PRN PRN Reason: Perineal Comfort Measure Last Admin: 11/25/17 17:44 Dose: 1 can Docusate Sodium (Colace) 100 mg PO BID PRN PRN Reason: Constipation Last Admin: 11/26/17 09:33 Dose: 100 mg Emollient Ointment (Lansinoh Hpa) 0 gm TOP ASDIRECTED PRN PRN Reason: Sore Nipples Last Admin: 11/26/17 09:32 Dose: 1 applic Ibuprofen (Motrin) 600 mg PO Q6H PRN PRN Reason: Mild pain or fever Last Admin: 11/26/17 21:02 Dose: 600 mg Witch Karuna (Tucks) 1 pad TOP ASDIRECTED PRN PRN Reason: Hemorrhoid pain Last Admin: 11/25/17 17:44 Dose: 1 jar Discontinued Medications Bupivacaine HCl (Sensorcaine-Mpf 0.25%) 10 ml .ROUTE .STK-MED ONE Stop: 11/25/17 22:01 Diphenhydramine HCl (Benadryl) 25 mg IVPUSH Q6H PRN PRN Reason: Pruritis Ephedrine Sulfate (Ephedrine Sulfate) 5 mg IVPUSH ASDIRECTED PRN PRN Reason: Hypotension Fentanyl (Sublimaze) 100 mcg EPIDUR Q3H PRN PRN Reason: Pain Last Admin: 11/25/17 05:54 Dose: 100 mcg Fentanyl/Bupivacaine HCl (Fentanyl/Bupivacaine/Ns 2 Mcg-0.125% 100 Ml) 100 ml EPIDUR ASDIRECTED TEN Last Admin: 11/25/17 12:31 Dose: 100 ml Lactated Ringer's (Ringers, Lactated) 1,000 mls @ 40 mls/hr IV ASDIRECTED TEN Last Admin: 11/25/17 07:16 Dose: 500 mls/hr Oxytocin/Lactated Ringer's (Pitocin In Lr 10 Units/1,000 Ml) 10 unit in 1,000 mls @ 12 mls/hr IV TITRATE TEN; Protocol Last Titration: 11/25/17 12:11 Dose: 10 munits/min, 60 mls/hr Oxytocin/Lactated Ringer's (Pitocin In Lr 10 Units/1,000 Ml) 10 unit in 1,000 mls @ 500 mls/hr IV .CONTINUOUS [facility] Misoprostol (Cytotec) Confirm Administered Dose 25 mcg .ROUTE .[employer] ONE Stop: 11/24/17 18:21 Last Admin: 11/24/17 22:35 Dose: 25 mcg Misoprostol (Cytotec) 25 mcg VAG Q4H PRN PRN Reason: cervical ripening Misoprostol (Cytotec) Confirm Administered Dose 25 mcg .ROUTE .[employer]-MED ONE Stop: 11/24/17 22:08 Last Admin: 11/25/17 01:48 Dose: Not Given Misoprostol (Cytotec) 25 mcg VAG Q4H PRN PRN Reason: cervical ripening Nalbuphine HCl (Nubain) 10 mg IVPUSH Q2H PRN PRN Reason: Pain (moderate 4-6) Nalbuphine HCl (Nubain) 10 mg IVPUSH Q2H PRN PRN Reason: Pain (moderate 4-6) Last Admin: 11/25/17 04:27 Dose: 10 mg Ondansetron HCl (Zofran) 4 mg IVPUSH Q4H PRN PRN Reason: Nausea/Vomiting Sodium Chloride (Saline Flush) 10 ml FLUSH ASDIRECTED PRN PRN Reason: Keep Vein Open Zolpidem Tartrate (Ambien) 5 mg PO BEDTIME PRN PRN Reason: Insomnia - Infant Interaction Disposition, : [place] in Room with Family Interaction: Holding Infant Feeding: Breastfed ; Nursed Well Support Person: - Recovery Exam Fundal Tone: Firm Fundal Level: 1 Fingerbreadths Below Umbilicus Fundal Placement: Midline Lochia Amount: Small Lochia Color: Rubra/Red Perineum Description: Intact, Minimal Bruising/Swelling Other Perinuem Description: 1st degree with repair Episiotomy/Laceration: Approximated Bladder Status: Voiding Urinary Elimination: Voided - Exam General: Alert, Oriented, Cooperative GI/Abdominal Exam: Soft, Non-Tender Extremities: Normal Inspection Skin: Warm, Dry, Intact - Problem List & Annotations (1) 39 weeks gestation of SNOMED Code(s): 20944590 Code(s): Z3A.39 - 39 WEEKS GESTATION OF Status: Acute Current Visit: Yes (2) Gestational hypertension SNOMED Code(s): 77523734 Code(s): O13.9 - GESTATIONAL HTN W/O SIGNIFICANT PROTEINURIA, UNSP TRIMESTER Status: Acute Current Visit: Yes Qualifiers: Trimester: third trimester Qualified Code(s): O13.3 - Gestational [ -induced] hypertension without significant proteinuria, third trimester (3) Vaginal delivery SNOMED Code(s): 490572394 Code(s): O80 - ENCOUNTER FOR FULL-TERM UNCOMPLICATED DELIVERY Status: Acute Current Visit: Yes - Problem List Review Problem List Initiated/Reviewed/Updated: Yes - My Orders Last 24 Hours: My Active Orders 11/26/17 17:37 Heat Therapy [OM.PC] PRN 11/27/17 07:04 Ready for Discharge [RC] PER UNIT ROUTINE - Assessment Assessment:: 32 y/o G1 now P1001 PPD#2 from at 39 5/7 wks - Plan Plan:: * Routine cares * Encourage breast feeding * BP's normal range with few mild range. Follow up in clinic in 2 weeks for BP check * Discharge home today
[2017-11-27] MEDS: Ibuprofen 600 MG Tab PO PRN (08:47)
== END 2017-11-27 11:30 | disposition home or self-care (01) | DRG 775 ==
LOC: JD.OB 16:00 → INTOOBSV 17:31 → OBSVTOIN 11-25 16:00 → JD.OB 11-25 16:01
PROVIDERS: ADMIT Obstetrics & Gynecology; ATTEND Obstetrics & Gynecology
PROC: 10E0XZZ Delivery of Products of Conception, External Approach (ICD-10-PCS; principal; 2017-11-25)
PROC: 0HQ9XZZ Repair Perineum Skin, External Approach (ICD-10-PCS; 2017-11-25)
PROC: 3E0S3GC Introduction of Other Therapeutic Substance into Epidural Space, Percutaneous Approach (ICD-10-PCS; 2017-11-25)
DX: O13.4 Gestational [pregnancy-induced] hypertension without significant proteinuria, complicating childbirth (principal); Z3A.39 39 weeks gestation of pregnancy; Z37.0 Single live birth; O70.0 First degree perineal laceration during delivery
CPT/HCPCS: 01967; 36415; 51702; 59025; 59300; 59409; 81003; 82565; 84450; 84460; 85027; 86592; 86850; 86900; 86901; A9270-GY; J2300; J2590; J3010; J7120

== ENCOUNTER 2020-03-29 10:21 | Inpatient (IN) | payer BC ==
[2020-03-29] MEDS ORDERED: Ondansetron 4 MG/2 ML SDV IVPUSH PRN (10:40)
[2020-03-29] MEDS ORDERED: Nalbuphine 10 MG/ML Syringe IVPUSH PRN (10:40)
[2020-03-29] MEDS ORDERED: Sodium Chloride 0.9% 10 ML Syringe FLUSH PRN (10:40)
[2020-03-29] MEDS ORDERED: Lactated Ringers 1,000 ML IV SCH (10:45)
[2020-03-29] MEDS ORDERED: Oxytocin/Lactated Ringers 10 UNIT/1,000 ML BAG IV SCH ×2 (10:45)
--- NOTE | 2020-03-29 10:49 | PCM.LDHP ---
L&D History of Present Illness - General Date of Service: 03/29/20 Admit Problem/Dx: Patient Status Order with Admit Dx/Problem 03/29/20 10:40 Patient Status [ADT] Routine Admission Diagnosis/Problem Admission Diagnosis/Problem Source of Information: Patient History Limitations: Reports: No Limitations - History of Present Illness Introduction:: Patient is a 34 y/o at 39 6/7 wks who presents for elective IOL. Doing well. No concerns - Related Data Allergies/Adverse Reactions: Allergies Allergy/AdvReac Type Severity Reaction Status Date / Time No Known Allergies Allergy Verified 11/22/17 11:39 Home Medications: Home Meds Prenat 115/Iron Fum/Folic/Dss [ 19 Tablet] 1 tab PO DAILY 11/24/17 [History] Docusate Sodium [Colace] 100 mg PO BID PRN cap 11/26/17 [Rx] Past Medical History [employer] History: Reports: , Spontaneous : 3 Para: 1 LMP (Approximate): - Past Surgical History HEENT Surgical History: Reports: Oral Surgery Social & Family History - Family History Family Medical History: Noncontributory - Tobacco Use Tobacco Use Status *Q: Never Tobacco User - Caffeine Use Caffeine Use: Reports: None - Alcohol Use Alcohol Use History: No - Recreational Drug Use Recreational Drug Use: No H&P Review of Systems - Review of Systems: Review Of Systems: See Below General: Reports: No Symptoms Pulmonary: Reports: No Symptoms Cardiovascular: Reports: No Symptoms Gastrointestinal: Reports: No Symptoms Genitourinary: Reports: No Symptoms Musculoskeletal: Reports: No Symptoms Psychiatric: Reports: No Symptoms L&D Exam - Exam Exam: See Below - Vital Signs Weight: 94.347 kg - OB Specific Contraction Intensity: Mild Heart Tones: Present Heart Tones per Min: 145 Heart Rate (FHR) Variability: Moderate (6-25 bmp) Presentation: Vertex - Fitzgerald Score Fitzgerald Score Cervix Position: Posterior Fitzgerald Score Consistency: Soft Fitzgerald Score Effacement: 51-70% Fitzgerald Score Dilation: 3-4 cm Fitzgerald Score 's Station: -2 Fitzgerald Score Total: 7 - Exam General: Alert, Oriented, Cooperative Lungs: Clear to Auscultation, Normal Respiratory Effort Cardiovascular: Regular Rate, Regular Rhythm GI/Abdominal Exam: Soft, Non-Tender Genitourinary: Normal external exam Back Exam: Normal Inspection Extremities: Normal Inspection Skin: Warm, Dry, Intact - Patient Data Result Diagrams: 03/29/20 11:10 - Problem List (1) 39 weeks gestation of SNOMED Code(s): 10060815 ICD Code: Z3A.39 - 39 WEEKS GESTATION OF Status: Acute Current Visit: No Problem List Initiated/Reviewed/Updated: Yes Orders Last 24hrs: Active Orders 24 hr Category Date Time Status Patient Status [ADT] Routine ADT 03/29/20 10:40 Active Activity as Tolerated [RC] PFP Care 03/29/20 10:40 Active Communication Order [RC] ASDIRECTED Care 03/29/20 10:40 Active Heart Tones [RC] ASDIRECTED Care 03/29/20 10:40 Active Non Stress Test [RC] PER UNIT ROUTINE Care 03/29/20 10:40 Active Notify Provider [RC] PFP Care 03/29/20 10:40 Active Notify Provider [RC] PRN Care 03/29/20 10:40 Active Peripheral IV Care [RC] . DIRECTED Care 03/29/20 10:40 Active Pump Management, Intrathecal [RC] ASDIRECTED Care 03/29/20 10:43 Active Urinary Catheter Assessment [RC] ASDIRECTED Care 03/29/20 10:40 Active Vital Signs [RC] PER UNIT ROUTINE Care 03/29/20 10:40 Active Regular Diet [DIET] Diet 03/29/20 Breakfast Active CBC WITH AUTO DIFF [HEME] Stat Lab 03/29/20 10:40 Ordered RAPID PLASMA REAGIN,RPR [CHEM] Routine Lab 03/29/20 10:40 Ordered TYPE AND SCREEN [BBK] Stat Lab 03/29/20 10:40 Ordered Lactated Ringers [Ringers, Lactated] 1,000 ml Med 03/29/20 10:45 Ordered IV ASDIRECTED Lidocaine 1% [Xylocaine 1%] Med 03/29/20 10:40 Once 50 ml INJECT ONETIME ONE Nalbuphine [Nubain] Med 03/29/20 10:40 Ordered 10 mg IVPUSH Q2H PRN Ondansetron [Zofran] Med 03/29/20 10:40 Ordered 4 mg IVPUSH Q4H PRN Oxytocin/Lactated Ringers [Pitocin in LR 10 Units/1,000 Med 03/29/20 10:45 Ordered ML] 10 unit in 1,000 ml IV .CONTINUOUS Oxytocin/Lactated Ringers [Pitocin in LR 10 Units/1,000 Med 03/29/20 10:45 Ordered ML] 10 unit in 1,000 ml IV TITRATE Sodium Chloride 0.9% [Saline Flush] Med 03/29/20 10:40 Ordered 10 ml FLUSH ASDIRECTED PRN Electronic Heart Tones Ext w TOCO [WOMSER] Oth 03/29/20 10:40 Ordered Routine Electronic Heart Tones Internal [WOMSER] Per Unit Oth 03/29/20 10:40 Ordered Routine Peripheral IV Insertion Adult [OM.PC] Routine Oth 03/29/20 10:40 Ordered Resuscitation Status Routine Resus Stat 03/29/20 10:40 Ordered Medication Orders Oxytocin/Lactated Ringer's (Pitocin In Lr 10 Units/1,000 Ml) 10 unit in 1,000 mls @ 12 mls/hr IV TITRATE TEN; Protocol Oxytocin/Lactated Ringer's (Pitocin In Lr 10 Units/1,000 Ml) 10 unit in 1,000 mls @ 500 mls/hr IV .CONTINUOUS TEN; Protocol Lactated Ringer's (Ringers, Lactated) 1,000 mls @ 100 mls/hr IV ASDIRECTED TEN Lidocaine HCl (Xylocaine 1%) 50 ml INJECT ONETIME ONE Stop: 03/29/20 10:41 Nalbuphine HCl (Nubain) 10 mg IVPUSH Q2H PRN PRN Reason: Pain Ondansetron HCl (Zofran) 4 mg IVPUSH Q4H PRN PRN Reason: Nausea/Vomiting Sodium Chloride (Saline Flush) 10 ml FLUSH ASDIRECTED PRN PRN Reason: Keep Vein Open Assessment/Plan Comment:: * Labs done * GBS negative, no need for antibiotics * AROM and then pitocin for augmentation * Pain management per patient preference * Anticipate
[2020-03-29] MEDS ORDERED: diphenhydrAMINE 50 MG/ML SDV IVPUSH PRN (14:31)
[2020-03-29] MEDS ORDERED: Bupivacaine/fentaNYL/NS 100 ML Bag EPIDUR PRN (14:31)
[2020-03-29] MEDS ORDERED: fentaNYL 100 MCG/2 ML SDV EPIDUR PRN (14:31)
[2020-03-29] MEDS ORDERED: ePHEDrine 50 MG/ML SDV IVPUSH PRN (14:31)
--- NOTE | 2020-03-29 14:45 | PCM.PREANE ---
Preanesthetic Assessment - Anesthesia/Transfusion/Family Hx Anesthesia History: Prior Anesthesia Without Reaction Family History of Anesthesia Reaction: No Transfusion History: No Prior Transfusion(s) - Review of Systems General: No Symptoms Pulmonary: No Symptoms Cardiovascular: No Symptoms Gastrointestinal: No Symptoms Neurological: No Symptoms Other: Reports: None - Physical Assessment Vital Signs: Last Vital Signs Temp 37.3 C 03/29/20 10:40 Pulse 105 H 03/29/20 11:01 Resp BP 113/74 03/29/20 11:01 Pulse Ox Height: 1.65 m Weight: 94.347 kg ASA Class: 2 Mental Status: Alert & Oriented x3 Airway Class: Mallampati = 1 Dentition: Reports: Normal Dentition Thyro-Mental Finger Breadths: 3 Mouth Opening Finger Breadths: 3 ROM/Head Extension: Full Lungs: Clear to Auscultation, Normal Respiratory Effort Cardiovascular: Regular Rate, Regular Rhythm - Lab Values: Laboratory Last Values WBC 10.20 K/mm3 (3.98-10.04) H 03/29/20 11:10 RBC 4.00 M/mm3 (3.98-5.22) 03/29/20 11:10 Hgb 11.3 gm/dl (11.2-15.7) 03/29/20 11:10 Hct 35.6 % (34.1-44.9) 03/29/20 11:10 MCV 89.0 fl (79.4-94.8) 03/29/20 11:10 MCH 28.3 pg (25.6-32.2) 03/29/20 11:10 MCHC 31.7 g/dl (32.2-35.5) L 03/29/20 11:10 RDW Std Deviation 43.0 fL (36.4-46.3) 03/29/20 11:10 Plt Count 340 K/mm3 (182-369) 03/29/20 11:10 MPV 9.0 fl (9.4-12.3) L 03/29/20 11:10 Neut % (Auto) 70.3 % (34.0-71.1) 03/29/20 11:10 Lymph % (Auto) 20.1 % (19.3-51.7) 03/29/20 11:10 [place] % (Auto) 7.8 % (4.7-12.5) 03/29/20 11:10 Eos % (Auto) 1.2 (0.7-5.8) 03/29/20 11:10 Baso % (Auto) 0.2 % (0.1-1.2) 03/29/20 11:10 Neut # (Auto) 7.17 K/mm3 (1.56-6.13) H 03/29/20 11:10 Lymph # (Auto) 2.05 K/mm3 (1.18-3.74) 03/29/20 11:10 [place] # (Auto) 0.80 K/mm3 (0.24-0.36) H 03/29/20 11:10 Eos # (Auto) 0.12 K/mm3 (0.04-0.36) 03/29/20 11:10 Baso # (Auto) 0.02 K/mm3 (0.01-0.08) 03/29/20 11:10 Manual Slide Review Not Reportable 03/29/20 11:10 SARS-CoV-2 RNA (DOMINIQUE) Negative (NEGATIVE) 03/29/20 11:00 Blood Type O POSITIVE 03/29/20 11:10 Gel Antibody Screen Negative 03/29/20 11:10 - Allergies Allergies/Adverse Reactions: Allergies Allergy/AdvReac Type Severity Reaction Status Date / Time No Known Allergies Allergy Verified 11/22/17 11:39 - Acknowledgements Anesthesia Type Planned: Epidural Pt an Appropriate Candidate for the Planned Anesthesia: Yes Alternatives and Risks of Anesthesia Discussed w Pt/Guardian: Yes Pt/Guardian Understands and Agrees with Anesthesia Plan: Yes PreAnesthesia Questionnaire HEENT History: Reports: None Cardiovascular History: Reports: None Respiratory History: Reports: None Gastrointestinal History: Reports: GERD Genitourinary History: Reports: None 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: Musculoskeletal History: Reports: None, Other (See Below) (scoliosis) Psychiatric History: Reports: None Endocrine/Metabolic History: Reports: None - Past Surgical History HEENT Surgical History: Reports: Oral Surgery - SUBSTANCE USE Tobacco Use Status *Q: Never Tobacco User Tobacco Use Within Last Twelve Months: No Recreational Drug Use History: No - HOME MEDS Home Medications: Home Meds Prenat 115/Iron Fum/Folic/Dss [ 19 Tablet] 1 tab PO DAILY 11/24/17 [History] Docusate Sodium [Colace] 100 mg PO BID PRN cap 11/26/17 [Rx] - CURRENT (IN HOUSE) MEDS Current Meds: Current Medications Diphenhydramine HCl (Benadryl) 25 mg IVPUSH Q6H PRN PRN Reason: pruritis Ephedrine Sulfate (Ephedrine Sulfate) 5 mg IVPUSH ASDIRECTED PRN PRN Reason: Hypotension Fentanyl (Sublimaze) 100 mcg EPIDUR Q3H PRN PRN Reason: Pain Fentanyl/Bupivacaine HCl (Fentanyl/Bupivacaine/Ns 2 Mcg-0.125% 100 Ml) 100 ml EPIDUR ASDIRECTED PRN PRN Reason: Pain Oxytocin/Lactated Ringer's (Pitocin In Lr 10 Units/1,000 Ml) 10 unit in 1,000 mls @ 12 mls/hr IV TITRATE TEN; Protocol Last Admin: 03/29/20 14:10 Dose: 2 munits/min, 12 mls/hr Documented by: Oxytocin/Lactated Ringer's (Pitocin In Lr 10 Units/1,000 Ml) 10 unit in 1,000 mls @ 500 mls/hr IV .CONTINUOUS TEN; Protocol Lactated Ringer's (Ringers, Lactated) 1,000 mls @ 100 mls/hr IV ASDIRECTED TEN Last Admin: 03/29/20 14:10 Dose: 100 mls/hr Documented by: Lidocaine HCl (Xylocaine 1%) 50 ml INJECT ONETIME ONE Stop: 03/29/20 16:01 Nalbuphine HCl (Nubain) 10 mg IVPUSH Q2H PRN PRN Reason: Pain Ondansetron HCl (Zofran) 4 mg IVPUSH Q4H PRN PRN Reason: Nausea/Vomiting Sodium Chloride (Saline Flush) 10 ml FLUSH ASDIRECTED PRN PRN Reason: Keep Vein Open
[2020-03-29] MEDS ORDERED: Bupivacaine 0.25% 10 ML SDV ONE (15:00)
[2020-03-29] MEDS ORDERED: Lidocaine 1% 50 ML MDV INJECT ONE (16:00)
--- NOTE | 2020-03-29 19:50 | PCM.DEL ---
L & D Note - General Info Date of Service: 03/29/20 - Delivery Note Labor: Induced by ARM, Induced by Oxytocin Delivery Outcome: Livebirth Infant Delivery Method: Spontaneous Vaginal Delivery-Single Infant Delivery Mode: Spontaneous Presentation: Left Occiput Anterior (HUMZA) Nuchal Cord: None Anesthesia Type: Epidural Amniotic Fluid Description: Clear Episiotomy Type: None Laceration: None Placenta: Intact, Spontaneous Cord: 3 Vessels Estimated Blood Loss: 200 Resuscitation Needed: Yes : Bulb Syringe, Stimulated, Warmed, Allen Used, Warmer Used Delivery Comments (Free Text/Narrative):: Patient found to be complete and began pushing. With maternal pushing effort head delivered from an HUMZA presentation. No nuchal cord present. With gentle downward traction the shoulders and body delivered. placed on maternal abdomen. Cord clamped and cut. Cord blood obtained. Placenta allowed time to separate and expelled intact. Inspection of the perineum showed no lacerations. - General Info Date of Service: 03/29/20 - Patient Data Vitals - Most Recent: Last Vital Signs Temp 37.3 C 03/29/20 10:40 Pulse 105 H 03/29/20 11:01 Resp BP 113/74 03/29/20 11:01 Pulse Ox Weight - Most Recent: 94.347 kg - Problem List & Annotations (1) 39 weeks gestation of SNOMED Code(s): 14620166 Code(s): Z3A.39 - 39 WEEKS GESTATION OF Status: Acute Current Visit: No (2) Vaginal delivery SNOMED Code(s): 807360216 Code(s): O80 - ENCOUNTER FOR FULL-TERM UNCOMPLICATED DELIVERY Status: Acute Current Visit: No - Problem List Review Problem List Initiated/Reviewed/Updated: Yes - My Orders Last 24 Hours: My Active Orders 03/29/20 Breakfast Regular Diet [DIET] 03/29/20 10:40 Patient Status [ADT] Routine Activity as Tolerated [RC] PFP Communication Order [RC] ASDIRECTED Heart Tones [RC] ASDIRECTED Non Stress Test [RC] PER UNIT ROUTINE Notify Provider [RC] PFP Notify Provider [RC] PRN Peripheral IV Care [RC] . DIRECTED Urinary Catheter Assessment [RC] ASDIRECTED Vital Signs [RC] PER UNIT ROUTINE RAPID PLASMA REAGIN,RPR [CHEM] Routine Nalbuphine [Nubain] 10 mg IVPUSH Q2H PRN Ondansetron [Zofran] 4 mg IVPUSH Q4H PRN Sodium Chloride 0.9% [Saline Flush] 10 ml FLUSH ASDIRECTED PRN Electronic Heart Tones Ext w TOCO [WOMSER] Routine Electronic Heart Tones Internal [WOMSER] Per Unit Routine Peripheral IV Insertion Adult [OM.PC] Routine Resuscitation Status Routine 03/29/20 10:43 Pump Management, Intrathecal [RC] ASDIRECTED 03/29/20 10:45 Lactated Ringers [Ringers, Lactated] 1,000 ml IV ASDIRECTED Oxytocin/Lactated Ringers [Pitocin in LR 10 Units/1,000 ML] 10 unit in 1,000 ml IV .CONTINUOUS Oxytocin/Lactated Ringers [Pitocin in LR 10 Units/1,000 ML] 10 unit in 1,000 ml IV TITRATE 03/29/20 10:47 Electronic Heart Tones Internal [WOMSER] Per Unit Routine - Assessment Assessment:: PPD#0 - Plan Plan:: * Routine cares * Breast feeding * Discharge home in 1-2 days
[2020-03-29] MEDS ORDERED: Docusate Sodium 100 MG Cap PO PRN (20:22)
[2020-03-29] MEDS ORDERED: Benzocaine/Menthol 20%-0.5% Spray 56 GM Canister TOP PRN (20:22)
[2020-03-29] MEDS ORDERED: Witch Hazel Medicated Pads 40/Jar TOP PRN (20:22)
[2020-03-29] MEDS: Ibuprofen 600 MG Tab PO PRN (21:16)
[2020-03-30] MEDS ORDERED: Calcium Carbonate 500 MG Tab.Chew PO PRN (03:58)
[2020-03-30] MEDS: Ibuprofen 600 MG Tab PO PRN ×3 (04:21→18:13)
--- NOTE | 2020-03-30 07:33 | PCM48HPAN ---
Post Anesthesia Note - EVALUATION WITHIN 48HRS OF ANESTHETIC Vital Signs in Normal Range: Yes Patient Participated in Evaluation: Yes Respiratory Function Stable: Yes Airway Patent: Yes Cardiovascular Function Stable: Yes Hydration Status Stable: Yes Pain Control Satisfactory: Yes Nausea and Vomiting Control Satisfactory: Yes Mental Status Recovered: Yes Vital Signs: Last Vital Signs Temp 36.7 C 03/30/20 03:50 Pulse 105 H 03/29/20 11:01 Resp 14 03/30/20 03:50 BP 105/74 03/30/20 03:50 Pulse Ox - COMMENTS/OBSERVATIONS Free Text/Narrative:: no anesthesia complications noted
--- NOTE | 2020-03-30 08:51 | PCM.PNPP ---
- General Info Date of Service: 03/30/20 Functional Status: Reports: Pain Controlled, Tolerating Diet, Ambulating, Urinating - Review of Systems General: Reports: No Symptoms Pulmonary: Reports: No Symptoms Cardiovascular: Reports: No Symptoms Gastrointestinal: Reports: No Symptoms Genitourinary: Reports: No Symptoms Musculoskeletal: Reports: No Symptoms Neurological: Reports: No Symptoms - Patient Data Vital Signs - Most Recent: Last Vital Signs Temp 36.7 C 03/30/20 03:50 Pulse 105 H 03/29/20 11:01 Resp 14 03/30/20 03:50 BP 105/74 03/30/20 03:50 Pulse Ox Weight - Most Recent: 94.347 kg I&O - Last 24 Hours: Intake & Output 03/29/20 03/30/20 03/30/20 22:59 06:59 14:59 Intake Total 1999 Balance 1999 Lab Results - Last 24 Hours: Laboratory Results - last 24 hr 03/29/20 03/29/20 03/29/20 Range/Units 11:00 11:10 11:10 WBC 10.20 H (3.98-10.04) K/mm3 RBC 4.00 (3.98-5.22) M/mm3 Hgb 11.3 (11.2-15.7) gm/dl Hct 35.6 (34.1-44.9) % MCV 89.0 (79.4-94.8) fl MCH 28.3 (25.6-32.2) pg MCHC 31.7 L (32.2-35.5) g/dl RDW Std Deviation 43.0 (36.4-46.3) fL Plt Count 340 (182-369) K/mm3 MPV 9.0 L (9.4-12.3) fl Neut % (Auto) 70.3 (34.0-71.1) % Lymph % (Auto) 20.1 (19.3-51.7) % [place] % (Auto) 7.8 (4.7-12.5) % Eos % (Auto) 1.2 (0.7-5.8) Baso % (Auto) 0.2 (0.1-1.2) % Neut # (Auto) 7.17 H (1.56-6.13) K/mm3 Lymph # (Auto) 2.05 (1.18-3.74) K/mm3 [place] # (Auto) 0.80 H (0.24-0.36) K/mm3 Eos # (Auto) 0.12 (0.04-0.36) K/mm3 Baso # (Auto) 0.02 (0.01-0.08) K/mm3 Manual Slide Review Not Reportable SARS-CoV-2 RNA (DOMINIQUE) Negative (NEGATIVE) Blood Type O POSITIVE Gel Antibody Screen Negative Med Orders - Current: Current Medications Acetaminophen (Tylenol) 650 mg PO Q4H PRN PRN Reason: mild pain or fever Benzocaine/Menthol (Dermoplast Pain Relief [place]) 0 gm TOP ASDIRECTED PRN PRN Reason: Perineal Comfort Measure Last Admin: 03/29/20 21:16 Dose: 1 canister Documented by: Calcium Carbonate/Glycine (Tums) 1,000 mg PO Q2H PRN PRN Reason: Indigestion Docusate Sodium (Colace) 100 mg PO BID PRN PRN Reason: Constipation Ibuprofen (Motrin) 600 mg PO Q6H PRN PRN Reason: Mild pain or fever Last Admin: 03/30/20 04:21 Dose: 600 mg Documented by: Theo Beckman ([place]) 1 pad TOP ASDIRECTED PRN PRN Reason: Pain Last Admin: 03/29/20 21:16 Dose: 1 tub Documented by: Discontinued Medications Diphenhydramine HCl (Benadryl) 25 mg IVPUSH Q6H PRN PRN Reason: pruritis Ephedrine Sulfate (Ephedrine Sulfate) 5 mg IVPUSH ASDIRECTED PRN PRN Reason: Hypotension Fentanyl (Sublimaze) 100 mcg EPIDUR Q3H PRN PRN Reason: Pain Last Admin: 03/29/20 16:28 Dose: 100 mcg Documented by: Fentanyl/Bupivacaine HCl (Fentanyl/Bupivacaine/Ns 2 Mcg-0.125% 100 Ml) 100 ml EPIDUR ASDIRECTED PRN PRN Reason: Pain Last Admin: 03/29/20 16:29 Dose: 100 ml Documented by: Oxytocin/Lactated Ringer's (Pitocin In Lr 10 Units/1,000 Ml) 10 unit in 1,000 mls @ 12 mls/hr IV TITRATE TEN; Protocol Last Titration: 03/29/20 18:31 Dose: 10 munits/min, 60 mls/hr Documented by: Oxytocin/Lactated Ringer's (Pitocin In Lr 10 Units/1,000 Ml) 10 unit in 1,000 mls @ 500 mls/hr IV .CONTINUOUS TEN; Protocol Lactated Ringer's (Ringers, Lactated) 1,000 mls @ 100 mls/hr IV ASDIRECTED TEN Last Infusion: 03/29/20 16:56 Dose: 100 mls/hr Documented by: Lidocaine HCl (Xylocaine 1%) 50 ml INJECT ONETIME ONE Stop: 03/29/20 16:01 Last Admin: 03/30/20 00:37 Dose: Not Given Documented by: Nalbuphine HCl (Nubain) 10 mg IVPUSH Q2H PRN PRN Reason: Pain Ondansetron HCl (Zofran) 4 mg IVPUSH Q4H PRN PRN Reason: Nausea/Vomiting Sodium Chloride (Saline Flush) 10 ml FLUSH ASDIRECTED PRN PRN Reason: Keep Vein Open - Interaction Disposition, : in Room with Family Interaction: Holding Infant Infant Feeding: Attempted ; Nursed Fair/Poor Support Person: - Recovery Exam Fundal Tone: Firm Fundal Level: 1 Fingerbreadths Below Umbilicus Fundal Placement: Midline Lochia Amount: Small Lochia Color: Rubra/Red Perineum Description: Intact, Minimal Bruising/Swelling Episiotomy/Laceration: None Bladder Status: Voiding Urinary Elimination: Voided - Exam General: Alert, Oriented, Cooperative GI/Abdominal Exam: Soft, Non-Tender Extremities: Normal Inspection Skin: Warm, Dry, Intact - Problem List & Annotations (1) 39 weeks gestation of SNOMED Code(s): 58017397 Code(s): Z3A.39 - 39 WEEKS GESTATION OF Status: Acute Current Visit: No (2) Vaginal delivery SNOMED Code(s): 822769448 Code(s): O80 - ENCOUNTER FOR FULL-TERM UNCOMPLICATED DELIVERY Status: Acute Current Visit: No - Problem List Review Problem List Initiated/Reviewed/Updated: Yes - My Orders Last 24 Hours: My Active Orders 03/29/20 10:40 Resuscitation Status Routine 03/29/20 20:22 Acetaminophen [TylenoL] 650 mg PO Q4H PRN Benzocaine/Menthol [Dermoplast Pain Relief [place]] See Dose Instructions TOP ASDIRECTED PRN Docusate Sodium [Colace] 100 mg PO BID PRN Ibuprofen [Motrin] 600 mg PO Q6H PRN witch Andrea [Tucks] 1 pad TOP ASDIRECTED PRN Heat Therapy [OM.PC] PRN 03/29/20 20:22 Activity as Tolerated [RC] PER UNIT ROUTINE Vital Signs [RC] 03,09,15,21 Assess Lochia [WOMSER] Per Unit Routine Assess Uterine Involution [WOMSER] Per Unit Routine Breast Pump [WOMSER] Per Unit Routine Ice Therapy [OM.PC] Per Unit Routine Perineal Care [OM.PC] Per Unit Routine Peripheral IV Discontinue [OM.PC] Routine Sitz Bath [OM.PC] Per Unit Routine 03/30/20 03:58 Calcium Carbonate [Tums] 1,000 mg PO Q2H PRN 03/30/20 20:22 Heat Therapy [OM.PC] PRN - Assessment Assessment:: PPD#1 - Plan Plan:: * Routine cares * Breast feeding * Discharge home today
--- NOTE | 2020-03-30 08:56 | PCM.DCSUM1 ---
Discharge Summary - Discharge Data Discharge Date: 03/30/20 Discharge Disposition: Home, Self-Care 01 Condition: Good - Referral to Home Health Primary Care Physician: Karie Cain NP - Discharge Diagnosis/Problem(s) (1) 39 weeks gestation of SNOMED Code(s): 36934010 ICD Code: Z3A.39 - 39 WEEKS GESTATION OF Status: Acute Current Visit: No (2) Vaginal delivery SNOMED Code(s): 754551675 ICD Code: O80 - ENCOUNTER FOR FULL-TERM UNCOMPLICATED DELIVERY Status: Acute Current Visit: No - Patient Summary/Data Complications: None Consults: None Recommended Follow-up Testing/Procedures: Follow up in 3 weeks for check Hospital Course: 34 y/o at 39 6/7 wks who presented for elective IOL. Done with AROM and pitocin. Progressed well to complete dilation and underwent an uncomplicated . See deliver note. did well and was discharged home on PPD#1 - Patient Instructions Diet: Regular Diet as Tolerated Activity: As Tolerated Activity, Other: Pelvic rest for 6 weeks Driving: May Drive Today Showering/Bathing: May Shower Showering/Bathing, Other: May Bathe Notify Provider of: Fever, Increased Pain, Swelling and Redness, Drainage, Nausea and/or Vomiting - Discharge Plan *PRESCRIPTION DRUG MONITORING PROGRAM REVIEWED*: No *COPY OF PRESCRIPTION DRUG MONITORING REPORT IN PATIENT GABRIELA: No Home Medications: Home Meds Prenat 115/Iron Fum/Folic/Dss [ 19 Tablet] 1 tab PO DAILY 11/24/17 [History] Docusate Sodium [Colace] 100 mg PO BID PRN cap 11/26/17 [Rx] Docusate Sodium [Colace] 100 mg PO BID PRN cap 03/30/20 [Rx] Ibuprofen [Motrin] 600 mg PO Q6H PRN tablet 03/30/20 [Rx] Patient Handouts: Care After Vaginal Delivery Referrals: Lizbeth Castellanos MD [Physician] - (3 weeks for check - can be telehealth ) - Discharge Summary/Plan Comment DC Time >30 min.: No - Patient Data Vitals - Most Recent: Last Vital Signs Temp 36.7 C 03/30/20 03:50 Pulse 105 H 03/29/20 11:01 Resp 14 03/30/20 03:50 BP 105/74 03/30/20 03:50 Pulse Ox Weight - Most Recent: 94.347 kg I&O - Last 24 hours: Intake & Output 03/29/20 03/30/20 03/30/20 22:59 06:59 14:59 Intake Total 1999 Balance 1999 Lab Results - Last 24 hrs: Laboratory Results - last 24 hr 03/29/20 03/29/20 03/29/20 Range/Units 11:00 11:10 11:10 WBC 10.20 H (3.98-10.04) K/mm3 RBC 4.00 (3.98-5.22) M/mm3 Hgb 11.3 (11.2-15.7) gm/dl Hct 35.6 (34.1-44.9) % MCV 89.0 (79.4-94.8) fl MCH 28.3 (25.6-32.2) pg MCHC 31.7 L (32.2-35.5) g/dl RDW Std Deviation 43.0 (36.4-46.3) fL Plt Count 340 (182-369) K/mm3 MPV 9.0 L (9.4-12.3) fl Neut % (Auto) 70.3 (34.0-71.1) % Lymph % (Auto) 20.1 (19.3-51.7) % [place] % (Auto) 7.8 (4.7-12.5) % Eos % (Auto) 1.2 (0.7-5.8) Baso % (Auto) 0.2 (0.1-1.2) % Neut # (Auto) 7.17 H (1.56-6.13) K/mm3 Lymph # (Auto) 2.05 (1.18-3.74) K/mm3 [place] # (Auto) 0.80 H (0.24-0.36) K/mm3 Eos # (Auto) 0.12 (0.04-0.36) K/mm3 Baso # (Auto) 0.02 (0.01-0.08) K/mm3 Manual Slide Review Not Reportable SARS-CoV-2 RNA (DOMINIQUE) Negative (NEGATIVE) Blood Type O POSITIVE Gel Antibody Screen Negative Med Orders - Current: Current Medications Acetaminophen (Tylenol) 650 mg PO Q4H PRN PRN Reason: mild pain or fever Benzocaine/Menthol (Dermoplast Pain Relief [place]) 0 gm TOP ASDIRECTED PRN PRN Reason: Perineal Comfort Measure Last Admin: 03/29/20 21:16 Dose: 1 canister Documented by: Calcium Carbonate/Glycine (Tums) 1,000 mg PO Q2H PRN PRN Reason: Indigestion Docusate Sodium (Colace) 100 mg PO BID PRN PRN Reason: Constipation Last Admin: 03/30/20 08:55 Dose: 100 mg Documented by: Ibuprofen (Motrin) 600 mg PO Q6H PRN PRN Reason: Mild pain or fever Last Admin: 03/30/20 04:21 Dose: 600 mg Documented by: Theo Beckman (Tucks) 1 pad TOP ASDIRECTED PRN PRN Reason: Pain Last Admin: 03/29/20 21:16 Dose: 1 tub Documented by: Discontinued Medications Diphenhydramine HCl (Benadryl) 25 mg IVPUSH Q6H PRN PRN Reason: pruritis Ephedrine Sulfate (Ephedrine Sulfate) 5 mg IVPUSH ASDIRECTED PRN PRN Reason: Hypotension Fentanyl (Sublimaze) 100 mcg EPIDUR Q3H PRN PRN Reason: Pain Last Admin: 03/29/20 16:28 Dose: 100 mcg Documented by: Fentanyl/Bupivacaine HCl (Fentanyl/Bupivacaine/Ns 2 Mcg-0.125% 100 Ml) 100 ml EPIDUR ASDIRECTED PRN PRN Reason: Pain Last Admin: 03/29/20 16:29 Dose: 100 ml Documented by: Oxytocin/Lactated Ringer's (Pitocin In Lr 10 Units/1,000 Ml) 10 unit in 1,000 mls @ 12 mls/hr IV TITRATE TEN; Protocol Last Titration: 03/29/20 18:31 Dose: 10 munits/min, 60 mls/hr Documented by: Oxytocin/Lactated Ringer's (Pitocin In Lr 10 Units/1,000 Ml) 10 unit in 1,000 mls @ 500 mls/hr IV .CONTINUOUS TEN; Protocol Lactated Ringer's (Ringers, Lactated) 1,000 mls @ 100 mls/hr IV ASDIRECTED TEN Last Infusion: 03/29/20 16:56 Dose: 100 mls/hr Documented by: Lidocaine HCl (Xylocaine 1%) 50 ml INJECT ONETIME ONE Stop: 03/29/20 16:01 Last Admin: 03/30/20 00:37 Dose: Not Given Documented by: Nalbuphine HCl (Nubain) 10 mg IVPUSH Q2H PRN PRN Reason: Pain Ondansetron HCl (Zofran) 4 mg IVPUSH Q4H PRN PRN Reason: Nausea/Vomiting Sodium Chloride (Saline Flush) 10 ml FLUSH ASDIRECTED PRN PRN Reason: Keep Vein Open
[2020-03-30] MEDS: Acetaminophen 325 MG Tab PO PRN ×2 (11:45→20:00)
== END 2020-03-30 20:10 | disposition home or self-care (01) | DRG 560 ==
LOC: JD.OB 10:21 → OBSVTOIN 19:36 → JD.OB 19:36
PROVIDERS: ADMIT Obstetrics & Gynecology; ATTEND Obstetrics & Gynecology
PROC: 10E0XZZ Delivery of Products of Conception, External Approach (ICD-10-PCS; principal; 2020-03-30)
PROC: 10907ZC Drainage of Amniotic Fluid, Therapeutic from Products of Conception, Via Natural or Artificial Opening (ICD-10-PCS; 2020-03-30)
PROC: 3E033VJ Introduction of Other Hormone into Peripheral Vein, Percutaneous Approach (ICD-10-PCS; 2020-03-30)
PROC: 3E0R3BZ Introduction of Anesthetic Agent into Spinal Canal, Percutaneous Approach (ICD-10-PCS; 2020-03-30)
DX: O80 Encounter for full-term uncomplicated delivery (principal); Z37.0 Single live birth; Z3A.39 39 weeks gestation of pregnancy; Z87.59 Personal history of other complications of pregnancy, childbirth and the puerperium; Z20.828 Contact with and (suspected) exposure to other viral communicable diseases
CPT/HCPCS: 36415; 51702; 59025; 59409; 85025; 86850; 86900; 86901; A9270-GY; J2590; J3010; J3490; J7120; U0002

== ENCOUNTER 2023-11-09 04:50 | Inpatient (IN) | payer OTHER ==
[2023-11-09] MEDS ORDERED: Nalbuphine 10 MG/ML Syringe IVPUSH PRN (05:28)
[2023-11-09] MEDS ORDERED: Lidocaine 1% 50 ML MDV INJECT PRN (05:28)
[2023-11-09] MEDS: Lactated Ringers 1,000 ML IV SCH (06:41)
[2023-11-09 07:11] LABS: BASOPHILS PERCENT AUTO 0.3 % (0.0-1.0); EOSINOPHILS ABSOLUTE AUTO 0.1 K/mm3 (0.0-0.4); EOSINOPHILS PERCENT AUTO 0.7 % (0.0-6.0); HEMOGLOBIN 13.1 gm/dl (12.0-16.0); IMMATURE GRAN ABSOLUTE AUTO 0.05 K/mm3 (0.00-0.05); IMMATURE GRAN PERCENT AUTO 0.5 % (0.0-0.4); LYMPHOCYTES ABSOLUTE AUTO 2.3 K/mm3 (1.0-4.8); LYMPHOCYTES PERCENT AUTO 20.7 % (24.0-44.0); MEAN CORPUSCULAR HGB CONC 33.6 g/dl (32.0-36.0); MEAN CORPUSCULAR VOLUME 89.2 fl (83.0-99.0); MEAN PLATELET VOLUME 9.2 fl (9.4-12.3); MONOCYTES ABSOLUTE AUTO 0.5 K/mm3 (0.0-0.8); MONOCYTES PERCENT AUTO 4.7 % (0.0-8.0); NEUTROPHILS PERCENT AUTO 73.1 % (41.0-71.0); PLATELET COUNT,PLT 246 K/mm3 (150-400); RED BLOOD CELL COUNT 4.37 M/mm3 (4.10-5.30); WHITE BLOOD CELL COUNT,WBC 10.95 K/mm3 (3.9-11.3)
[2023-11-09] MEDS ORDERED: ePHEDrine 50 MG/ML SDV IVPUSH PRN (07:15)
[2023-11-09] MEDS ORDERED: diphenhydrAMINE 50 MG/ML SDV IVPUSH PRN (07:15)
[2023-11-09] MEDS: fentaNYL 100 MCG/2 ML SDV EPIDUR PRN (07:32)
[2023-11-09] MEDS: Bupivacaine/fentaNYL/NS 100 ML Bag EPIDUR PRN (07:37)
[2023-11-09] MEDS ORDERED: Sodium Chloride 0.9% 10 ML Syringe FLUSH SCH (09:00)
[2023-11-09] MEDS ORDERED: Bupivacaine 0.25% 10 ML SDV ONE (12:00)
[2023-11-09] MEDS: Oxytocin/Lactated Ringers 30 UNIT/500 ML BAG IV SCH (13:36)
[2023-11-09] MEDS ORDERED: Docusate Sodium 100 MG Cap PO PRN (14:24)
[2023-11-09] MEDS: Benzocaine/Menthol 20%-0.5% Spray 78 GM Cannister TOP PRN (15:40)
[2023-11-09] MEDS: Witch Hazel Medicated Pads 40/Jar TOP PRN (15:40)
[2023-11-09] MEDS: Ibuprofen 600 MG Tab PO SCH (15:40)
[2023-11-09] MEDS: Acetaminophen 325 MG Tab PO PRN (23:07)
== END 2023-11-10 14:35 | disposition home or self-care (01) | DRG 807 ==
LOC: JD.OBCHECK 04:50 → JD.OB 04:54 → JD.OBCHECK 06:47 → OBSVTOIN 13:18 → JD.OB 13:19
PROVIDERS: ADMIT Obstetrics & Gynecology; ATTEND Obstetrics & Gynecology
PROC: 10E0XZZ Delivery of Products of Conception, External Approach (ICD-10-PCS; principal; 2023-11-09)
PROC: 3E0R3BZ Introduction of Anesthetic Agent into Spinal Canal, Percutaneous Approach (ICD-10-PCS; 2023-11-09)
PROC: 00HU33Z Insertion of Infusion Device into Spinal Canal, Percutaneous Approach (ICD-10-PCS; 2023-11-09)
DX: O42.02 Full-term premature rupture of membranes, onset of labor within 24 hours of rupture (principal); Z37.0 Single live birth; Z3A.39 39 weeks gestation of pregnancy
CPT/HCPCS: 36415; 51702; 59025; 59409; 84112; 85025; 86592; A9270-GY; J0665; J3010; J3490; J7120; J7999